=== PATIENT | male | born 2000 | race Caucasian/White ===

== ENCOUNTER → 2018-03-13 | Outpatient (CLI) | payer BC, OTHER ==
[~2018-03-13] VITALS: Ht 170.2 cm; Wt 63.5 kg
[~2018-03-13] MED LIST: CLONAZEPAM 0.50.5 M1 PO; NEURONTIN 300300 M1 PO; PERCOCET 5-3251 EACH PO
--- NOTE | ~2018-03-13 | HPC ---
[facility] [address] [place] [address] PAIN MANAGEMENT CONSULTATION Name: AMANJAY [id number] Admission: 03/13/18 Attend Phys: Ynes Guerrero MD Discharge: Date of : 98 Report #: [id number] THIS REPORT FOR: //name// CC: FAM unknown Ynes Valderrama MD DATE OF SERVICE: 03/13/2018 CHIEF COMPLAINT: Pain in the finger after trauma. HISTORY OF PRESENT ILLNESS: The patient is a 17-year-old gentleman, who states that he was cutting an onion, this was on 02/09/2018. At that point, he accidentally cut his small finger. He states that the injury was quite severe. He ended up having the end of his finger amputated because of the severity of this injury. He has been seen by Orthopedics. He states that he is going to see a hand surgeon today. Continues to have pain and discomfort, which is quite problematic. He notes that there is significant sensitivity around the end of his finger. He feels that the fingertip still is there. He has somewhat of a burning sensation. He has been trying medications to help decrease his pain and discomfort. It is found that Percocet has been helpful. He states that the surgeon gave him 1 week's worth of the medication. He has tried tramadol, has been using Celebrex and gabapentin. He states that it is feels like his fingers being smashed with a hammer. He notes that the pain is worse with stress, anxiety and when he notes hand tightness, described as continuous, steady, constant, burning, shooting, cramping, aching, crushing, pulling, throbbing and stabbing. He rates it as a 9/10 on today. ALLERGIES: AMOXICILLIN AND HAD TROUBLE WITH TRAMADOL TOLERATING IT. MEDICATIONS: Clonazepam 5 mg b.i.d., gabapentin 300 mg t.i.d. PAST MEDICAL HISTORY: Anxiety and migraines. PAST SURGICAL HISTORY: Traumatic amputation of the left little finger. SOCIAL HISTORY: Right-handed person, lives with his parents. Denies use of alcohol. 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 REVIEW OF SYSTEMS: Generally good health, fatigue, weakness, headaches, insomnia, nervousness, numbness and tingling sensation, tremors, otherwise unremarkable. LABORATORY DATA: No laboratory values are available at time of our interview. PAIN CLINIC ASSESSMENT/PQRS: [facility] [address] [place] [address] PAIN MANAGEMENT CONSULTATION Name: JAY NEWTON Room #: REG CLI Radha#: [id number] Admission: 03/13/18 Attend Phys: Ynes Guerrero MD Discharge: Date of : 98 Report #: [id number] 1. Osteoarthritis. The patient is not being treated for osteoarthritis or rheumatoid arthritis. 2. Height 5 feet 7 inches, weight 140 pounds, BMI 21. 3. Vital Signs: Blood pressure 157/90, heart rate 103, respiratory rate 14, room air saturation 99%. 4. Pain intensity /10. 5. Fall risk. The patient has not fallen in the last 3 months. 6. Blood thinner. The patient is not on a blood thinning medication. 7. Hypertension. The patient has not been treated for hypertension. 8. Opioids greater than 6 weeks. The patient is not on opioid medications on a regular basis. 9. Risk assessment tool, moderate for opioid use. 10. Functional assessment tool, 50/70. 11. Recreational drug use. The patient denies recreational drug use on a regular basis, but does have smoked marijuana. 12. Tobacco: The patient smokes 1/2 pack of cigarettes per day and has smoked for the last 3 years. Discussed the benefits of smoking cessation with the patient. 13. Alcohol: The patient denies use of alcoholic beverages. PHYSICAL EXAMINATION: GENERAL: The patient is a well-developed, well-nourished white male. Appears his stated age. He is alert and oriented x 3. Her affect is appropriate. Speech is fluent. HEENT: Normocephalic, atraumatic. Extraocular eye muscles intact. Sclerae nonicteric. Mucous membranes are moist. NECK: Without adenopathy or JVD. HEART: Regular rate. S1, S2. ABDOMEN: Nontender. Bowel sounds present. EXTREMITIES: Upper extremity muscle strength is judged to be 5/5 on the left side. The patient has mixer and scaler strength of 4+/5 on the left side. The patient has an amputated left little finger. Complains of pain and discomfort, which is shooting, burning and uncomfortable. The patient sits with his hand in a somewhat dependent position. Notes less pain and discomfort when held the pain higher above his heart. Lower extremity muscle strength is judged to be 5/5 for the major muscle groups in lower extremity. The patient without scoliosis, kyphosis or lordosis. IMPRESSION: 1. Right finger, small finger pain status post traumatic amputation. 2. Anxiety. RECOMMENDATIONS: We discussed treatment options with the patient. At this juncture, we will discuss the treatment course for postsurgical pain. I explained to the patient that we would be willing to give him medication for 1 week. A script for hydrocodone or Percocet has been written. We explained that [address] [address] PAIN MANAGEMENT CONSULTATION Name: JAY NEWTON Room #: REG [facility]#: [id number] Admission: 03/13/18 Attend Phys: Ynes Guerrero MD Discharge: Date of : 98 Report #: [id number] the patient's pain should continue to improve as time progresses. The phantom pain and discomfort in his finger should continue to tele scope and over time. Overall, things should work out quite nicely. A script for gabapentin 300 mg 1 p.o. t.i.d. and the patient will take 600 mg in the morning, 300 in the afternoon and 300 at night. He will also try oxycodone, Percocet 5/325 one p.o. up to 3 tablets p.o. t.i.d. We would like to thank you for letting us participate in his care. We hope he continues to improve. By: 0900 1510 nYes Guerrero MD /nt
[2018-03-13 13:58] VITALS: BP 157/90
--- NOTE | 2018-03-13 14:29 | NUR ---
Pain Clinic Assessment: 1. History of Osteoarthritis: History of Rheumatoid Arthritis: 2. Height: 5 ft. 7 in. 170.2 cm. Weight: 140.0 lb. oz. 63.504 kg. Patient's BMI: 21.9 3. Vital Signs: BP: 157/90 Pulse: 103 Resp: 14 Temp: 02 Sat: 99 ECG Mon: 4. Pain Intensity: 9 5. Fall Risk: Dizziness: N Needs help standing or walking: N Fallen in the last 3 months: N Fall risk comments: 6. Patient on Blood Thinner: None 7. History of Hypertension: N 8. Opioid Therapy greater than 6 weeks: N Opiate Contract Signed: 9. Risk Assessment Tool Provided: 10. Functional Assessment Tool: 11. Recreational Drug Use: Current within past 3 mos Drug Type: MARAJAUNA Tobacco Use: Current Every Day Smoker Tobacco Type: Cigarettes Amount or Packs/day: 1/2 How Many Years: 3 Alcohol Use: No Frequency: Quant:
== END ==
LOC: PAIN 10:13 → EDSTATUS 10:28 → PAIN 10:30
DX: M79.644 Pain in right finger(s) (principal); F41.9 Anxiety disorder, unspecified; Z79.899 Other long term (current) drug therapy

== ENCOUNTER → 2018-04-29 | Outpatient (CLI) | payer BC, OTHER ==
[~2018-04-29] VITALS: Ht 170.2 cm; Wt 63.6 kg
--- NOTE | ~2018-04-29 | HPC ---
[facility] [place] [address] PAIN MANAGEMENT CONSULTATION Name: AMANJAY Room #: REG [facility].#: [id number] Admission: 04/29/18 ������������������ Attend Phys: Ynes Guerrero MD Discharge: ������������������ Date of : 98 Report #: [id number] THIS REPORT FOR: //name// CC: FAM unknown Ynes Valderrama MD DATE OF SERVICE: 04/29/2018 FOLLOWUP COMPLAINT: Finger seems to be healing well, but it does hurt at the end were healing. FOLLOWUP HISTORY: The patient is a 17-year-old gentleman who has been followed in the pain clinic because of chronic pain involving his left small finger. As you may recall, he severed it while using a knife. He has been seen by the orthopedic hand surgeon. Has had some additional surgery. He feels that his hand is healing reasonably well. Has noted some increased sensitivity at the distal end when the finger touch is on surfaces. Overall, things have gone reasonably well. He is not having any complications. He has returned today for evaluation and followup. ALLERGIES: AMOXICILLIN FOR ALLERGIES TROUBLE WITH TRAMADOL TOLERATING IT. CURRENT MEDICATIONS: Clonazepam 5 mg b.i.d., gabapentin 300 mg t.i.d. PAIN CLINIC ASSESSMENT/PQRS: 1. History of osteoarthritis. The patient is not being treated for osteoarthritis or rheumatoid arthritis. 2. Height 5 feet 7 inches, weight 140 pounds, BMI is 22.0. 3. Vital Signs: Blood pressure 156/106, pulse 106, respiratory rate 14, room air saturation 100%. 4. Pain intensity 06/10. 5. Fall history: The patient has not fallen in the last 3 months. 6. Blood thinner. The patient is not on a blood thinning medication. 7. Hypertension. The patient is not being treated for hypertension. 8. Opioids greater than 6 weeks. The patient is not receiving opioid medication from the pain clinic. 9. Risk assessment tool, moderate for opioid use. 10. Functional assessment tool of 50-70. 11. Recreational drug use. The patient denies use of recreational drugs in the past 3 months. 12. Tobacco. The patient does smoke cigarettes have discussed the benefits of smoking cessation with the patient. This can cause problems with healing. 13. Alcohol: The patient denies use of alcoholic beverages. PHYSICAL EXAMINATION: [facility] [address] [place] [address] PAIN MANAGEMENT CONSULTATION Name: AMANJAY Room #: REG [facility]#: [id number] Admission: 04/29/18 ������������������ Attend Phys: Ynes Guerrero MD Discharge: ������������������ Date of : 98 Report #: [id number] GENERAL: The patient is a well-developed, well-nourished white male. Appears his stated age. He is alert and oriented x 3. His affect is appropriate. Speech is fluent. HEAD, EYES, EARS, NOSE, AND THROAT: Normocephalic, atraumatic. Extraocular muscles intact. Sclerae nonicteric. Mucous membranes are moist. NECK: Without adenopathy or JVD. HEART: Regular rate. S1, S2. ABDOMEN: Nontender. Bowel sounds present. EXTREMITIES: Upper extremity muscle strength is judged to be 5/5 for the major muscle groups and the patient's imagery analyst strength so on the left side is 4+/5. Has an amputated little finger. Appears to be healing well on the tip. He is somewhat a bluish. The weather outside is cold. Does not appear to be infected. Has two second capillary refill around the edges. Lower extremity muscle strength is to be 5/5 for the major muscle groups of the lower extremity. The patient without scoliosis, kyphosis or lordosis. IMPRESSION: 1. Right little finger, status post amputation, improving. 2. Anxiety. RECOMMENDATIONS: We discussed treatment options with the patient. At this juncture, he feels that the pain is subsiding. He does pretty well. Both pain and discomfort if he bumps the affected stump on an item or uses it while it is healing. We have discussed the use of prior like prilocaine/lidocaine (EMLA cream) can be placed at the distal end of stump. This is a local anesthetic. After placing this medication on within about 20-30 minutes oftentimes these areas can be quite numb. This medication has been is quite effectively for the procedures that might be a bit painful. I think this will be a good use of this medication. He states that he is doing reasonably well. I do feel that opioid medications at this juncture are necessary. A script EMLA cream 20 mg 3 to have been written for. Should his pain continue to be problematic, he can get another refill of this medication and hopefully things continue to go well. Reminded him to keep his left finger warm. We would like to thank you for letting us to participate in his care. We hope he continues to improve. ��������������������������������������������� ���������������������������������������� By: ��������������������������������������������� 1614 1814 Ynes Guerrero MD /CHRIS
[2018-04-29 09:42] VITALS: BP 156/106
--- NOTE | 2018-04-29 09:55 | NUR ---
Pain Clinic Assessment: 1. History of Osteoarthritis: History of Rheumatoid Arthritis: 2. Height: 5 ft. 7 in. 170.2 cm. Weight: 140.2 lb. oz. 63.594 kg. Patient's BMI: 22.0 3. Vital Signs: BP: 156/106 Pulse: 106 Resp: 14 Temp: 02 Sat: 100 ECG Mon: 4. Pain Intensity: 4 5. Fall Risk: Dizziness: N Needs help standing or walking: N Fallen in the last 3 months: N Fall risk comments: 6. Patient on Blood Thinner: None 7. History of Hypertension: N 8. Opioid Therapy greater than 6 weeks: N Opiate Contract Signed: 9. Risk Assessment Tool Provided: LOW 10. Functional Assessment Tool: 50/70 11. Recreational Drug Use: Current within past 3 mos Drug Type: Tobacco Use: Current Every Day Smoker Tobacco Type: Cigarettes Amount or Packs/day: 1/2 PACK How Many Years: Alcohol Use: No Frequency: Quant:
== END ==
LOC: PAIN 07:39
DX: M79.645 Pain in left finger(s) (principal); G89.29 Other chronic pain; F41.9 Anxiety disorder, unspecified; Z79.899 Other long term (current) drug therapy; Z89.021 Acquired absence of right finger(s)

== ENCOUNTER 2018-05-08 12:59 | Emergency (ER) | payer BC, OTHER ==
[~2018-05-08] VITALS: Ht 177.8 cm; Wt 63.5 kg
[2018-05-08 16:12] VITALS: BP 114/96
== END 2018-05-08 15:15 | disposition home or self-care (01) ==
LOC: ER 12:59
DX: G89.29 Other chronic pain (principal); M79.645 Pain in left finger(s)

== ENCOUNTER 2018-05-12 10:16 | Emergency (ER) | payer BC, OTHER ==
[~2018-05-12] VITALS: Ht 177.8 cm; Wt 63.5 kg
[2018-05-12 10:17] VITALS: BP 153/96
[2018-05-12] MEDS ORDERED: MOBIC7.5 MG PO (10:31)
== END 2018-05-12 15:09 | disposition home or self-care (01) ==
LOC: ER 10:16
DX: G89.29 Other chronic pain (principal); M79.645 Pain in left finger(s); Z89.022 Acquired absence of left finger(s)

== ENCOUNTER 2018-09-20 11:42 | Emergency (ER) | payer BC, OTHER ==
[~2018-09-20] VITALS: Ht 177.8 cm; Wt 65.8 kg
[2018-09-20 11:42] VITALS: BP 154/86
[~2018-09-20 11:42] MED LIST changes: +MOBIC7.5 MG PO
[2018-09-20] MEDS ORDERED: NEURONTIN 400400 M1 PO ×2 (11:46→11:59)
[2018-09-20] MEDS ORDERED: XANAX1 MG PO ×2 (11:46→11:59)
[2018-09-23] MEDS ORDERED: VOLTAREN GEL 1100 G1 TOP (15:08)
== END 2018-09-20 12:40 | disposition home or self-care (01) ==
LOC: ER 11:42
DX: Z76.0 Encounter for issue of repeat prescription (principal); F41.9 Anxiety disorder, unspecified; Z88.1 Allergy status to other antibiotic agents; Z88.8 Allergy status to other drugs, medicaments and biological substances

== ENCOUNTER → 2018-09-23 | Outpatient (CLI) | payer BC, OTHER ==
[~2018-09-23] VITALS: Ht 177.8 cm; Wt 66.0 kg
[~2018-09-23] MED LIST changes: +NEURONTIN 400400 M1 PO; +VOLTAREN GEL 1100 G1 TOP; +XANAX1 MG PO
[2018-09-23 14:40] VITALS: BP 161/121
--- NOTE | 2018-09-23 14:43 | NUR ---
Pain Clinic Assessment: 1. History of Osteoarthritis: History of Rheumatoid Arthritis: 2. Height: 5 ft. 10 in. 177.8 cm. Weight: 145.4 lb. oz. 65.953 kg. Patient's BMI: 20.9 3. Vital Signs: BP: 161/121 Pulse: 103 Resp: 16 Temp: 02 Sat: 99 ECG Mon: 4. Pain Intensity: 7 5. Fall Risk: Dizziness: N Needs help standing or walking: N Fallen in the last 3 months: N Fall risk comments: 6. Patient on Blood Thinner: None 7. History of Hypertension: N 8. Opioid Therapy greater than 6 weeks: N Opiate Contract Signed: 9. Risk Assessment Tool Provided: LOW 10. Functional Assessment Tool: 50/70 11. Recreational Drug Use: Past greater than 3 mos Drug Type: Tobacco Use: Current Every Day Smoker Tobacco Type: Cigarettes Amount or Packs/day: 1/2 PACK How Many Years: Alcohol Use: No Frequency: Quant:
--- NOTE | 2018-10-07 17:05 | HPC ---
[facility] [address] [address] PAIN MANAGEMENT CONSULTATION Name: JAY NEWTON Room #: REG [facility] Chasity#: [id number] Admission: 09/23/18 Attend Phys: Ynes Guerrero MD Discharge: Date of : 98 Report #: [id number] THIS REPORT FOR: //name// CC: Ynes Valderrama DATE OF SERVICE: 09/23/2018 CHIEF COMPLAINT: Pain in the index finger on the right hand after golfing. HISTORY: The patient is a 17-year-old gentleman who has been seen in the Pain Clinic in the past because of pain involving his left finger. The patient unfortunately traumatized his finger in 01/2018. As a result of this accident, the patient's distal finger ended up being amputated. He has had surgery. It overall has been healing reasonably well. The patient has been active. States that he was playing golf. As a result of playing golf about 2 days ago, he felt as though he pulled the tendon. It involved his right hand. It was the index finger. There is soreness in this area. He notes he is able to move it through its range of motion, but still has more pain than he would anticipate. He has been using gabapentin. He has tried nonsteroidal anti-inflammatory medications. The patient had used [id number] nonsteroidal anti-inflammatory medications. Again, the pain has been problematic and he has sought evaluation in the Pain Clinic. ALLERGIES: AMOXICILLIN, THE PATIENT HAD TROUBLE WITH TRAMADOL. DIFFICULTY IN TOLERATING IT. CURRENT MEDICATIONS: Xanax 1 mg b.i.d., gabapentin 400 mg t.i.d. PAIN CLINIC ASSESSMENT/PQRS: 1. Osteoarthritis. The patient is not being treated for osteoarthritis or rheumatoid arthritis. 2. Height 5 feet 10 inches, weight 145 pounds, BMI is 20.9. 3. Vital Signs: Blood pressure 161/121, pulse 103, respiratory rate 16, room air saturation 99%. 4. Pain intensity, 09/09. 5. Fall risk. The patient has not fallen in the last 3 months. 6. Blood thinner. The patient is not on a blood thinning medication. 7. Hypertension. The patient is not being treated for hypertension. 8. Opioids greater than 6 weeks. The patient is not on opioid regimen at this juncture. 9. Risk assessment tool, moderate for opioid use. 10. Functional assessment tool, 50/70. 11. Recreational drug use. The patient denies use of recreational drugs. 12. Tobacco: The patient currently smokes one-half pack of cigarettes per day. Discussed the benefits of smoking cessation. [address] [address] PAIN MANAGEMENT CONSULTATION Name: JAY NEWTON Room #: REG CLI More.#: [id number] Admission: 09/23/18 Attend Phys: Ynes Guerrero MD Discharge: Date of : 98 Report #: [id number] 13. Alcohol: The patient denies use of alcoholic beverages. PHYSICAL EXAMINATION: GENERAL: The patient is a well-developed, well-nourished white male. Appears his stated age. He is alert and oriented x 3. His affect is appropriate. Speech is fluent. HEENT: Normocephalic, atraumatic. Extraocular eye muscles intact. Sclerae nonicteric. Mucous membranes are moist. NECK: Without adenopathy or JVD. HEART: Regular rate, S1, S2 normal. ABDOMEN: Nontender. Bowel sounds present. EXTREMITIES: Upper extremity muscle strength is judged to be 5/5 for the major muscle groups in the upper extremity. The patient's instructor ballroom dancing strength on the left is 5-/5 for the major muscle groups on the left. The patient has a well-healed right finger. Status post traumatic amputation. The patient's finger that is most problematic at this juncture is the index finger. Palpation of the index finger along its medial aspect is sore to palpation. No soreness is noted along the lateral portion. The patient is able to move his fingers through range of motion. Does complain of some pain and discomfort and soreness in the area of the dorsal interosseous, has some soreness in the area of the middle phalanx, has some soreness in the area of the collateral ligaments of the metacarpophalangeal joint. Also, has some discomfort in the area of the collateral ligaments of the proximal interphalangeal joint. The patient is without significant scoliosis, kyphosis or lordosis. The patient is without problems in the lower extremity and muscle strength in this area is 5/5. IMPRESSION: 1. Right second finger/index finger soreness after playing golf. 2. Anxiety. RECOMMENDATIONS: We discussed treatment options with the patient. At this juncture, I think that the pain is mostly myofascial in nature. Does not complain of any dermatomal distribution. Does not complain of any true neurologic dermatomal areas. We would recommend that the patient try a conservative approach. I think that Voltaren gel would be a very reasonable treatment course at this juncture. A script for Voltaren gel has been provided for the patient. He will use this four times a day. If his pain continues to be problematic one might consider use of a prilocaine/lidocaine solution to help with this discomfort. I do not think injections at this juncture are warranted. We have explained this to the patient. He feels comfortable in trying the conservative approach with Voltaren gel. A script for 1% q.i.d. has been written with 2 refills. [facility] [address] [place] [address] PAIN MANAGEMENT CONSULTATION Name: AMANJAY Room #: REG [facility]#: [id number] Admission: 09/23/18 Attend Phys: Ynes Guerrero MD Discharge: Date of : 98 Report #: [id number] We would like to thank you for letting us participate in his care. We hope he continues to improve. <ELECTRONICALLY SIGNED> By: Ynes Guerrero MD 10/07/18 1705 1053 1619 Ynes Guerrero MD /nt
== END ==
LOC: PAIN 14:23
DX: L98.8 Other specified disorders of the skin and subcutaneous tissue (principal); F32.9 Major depressive disorder, single episode, unspecified; Z88.8 Allergy status to other drugs, medicaments and biological substances; Z79.899 Other long term (current) drug therapy